=== PATIENT | male | born 2000 | race African-American/Black ===

== ENCOUNTER 2019-07-27 11:49 | Emergency (ER) | payer OTHER ==
[~2019-07-27] VITALS: Ht 172.7 cm; Wt 81.6 kg
[2019-07-27 11:53] VITALS: BP 148/82
[2019-07-27] MEDS ORDERED: KETOROLAC TROMETH 15 mg/ml 1ML VL IM ONE (12:15)
[2019-07-27] MEDS ORDERED: KETOROLAC TROMETH 30 MG/ML 1ML VIAL ONE (12:25)
[2019-07-27] MEDS ORDERED: KETOROLAC TROMETH 30 MG/ML 1ML VIAL IM ONE (12:30)
== END 2019-07-27 12:40 | disposition left against medical advice (07) ==
LOC: EDBD 11:49 → ER 11:49
DX: M54.9 Dorsalgia, unspecified (principal); R10.9 Unspecified abdominal pain
CPT/HCPCS: J1885